=== PATIENT | male | born 1950 | race Caucasian/White ===

== ENCOUNTER 2024-05-31 06:47 | Day surgery (SDC) | payer OTHER ==
[2024-05-31] MEDS ORDERED: FentaNYL CITRATE PF 100 MCG/2 ML VIAL ONE (07:53)
[2024-05-31] MEDS ORDERED: MIDAZOLAM HCL 2 MG/2 ML VIAL ONE (07:54)
[2024-05-31] MEDS ORDERED: TRAZ-252 PO (08:34)
[2024-05-31] MEDS ORDERED: FAMO20 PO (08:34)
[2024-05-31] MEDS ORDERED: OMEP20 PO (08:34)
[2024-05-31] MEDS ORDERED: SERT-158 PO (08:34)
[2024-05-31] MEDS ORDERED: AMLO-258 PO (08:34)
[2024-05-31] MEDS ORDERED: ASPI-1450 PO (08:34)
[2024-05-31] MEDS ORDERED: LOSA-381 PO (08:34)
[2024-05-31] MEDS ORDERED: MONT-35 PO (08:34)
[2024-05-31] MEDS ORDERED: TAMS0.4C94 PO (08:34)
[2024-05-31] MEDS ORDERED: ATOR40TA28 PO (08:34)
[2024-05-31] MEDS ORDERED: BUDE10.27 IH (08:35)
[2024-05-31] MEDS ORDERED: TOPI25 PO (08:35)
[2024-05-31] MEDS: SODIUM CHLORIDE 0.9% 1,000 ML IV ONE (09:24)
[2024-05-31 09:25] VITALS: PULSE 90; RESP 20; O2SAT 100
[2024-05-31] MEDS ORDERED: MethylPREDNISolone SOD SUCC 125 MG/2 ML VIAL ONE (09:48)
[2024-05-31] MEDS: MethylPREDNISolone SOD SUCC 125 MG/2 ML VIAL IVP ONE (10:38)
== END 2024-05-31 13:47 | disposition home or self-care (01) ==
LOC: SURGERY 06:47
PROVIDERS: ATTEND Internal Medicine Critical Care Medicine
DX: R05.3 Chronic cough (principal); J38.4 Edema of larynx; B37.0 Candidal stomatitis; R04.2 Hemoptysis; R06.2 Wheezing; J98.09 Other diseases of bronchus, not elsewhere classified; J84.10 Pulmonary fibrosis, unspecified; J98.8 Other specified respiratory disorders; Z85.21 Personal history of malignant neoplasm of larynx; Z87.891 Personal history of nicotine dependence
CPT/HCPCS: 31623; 93005; 87206; 87101; 87220; 87070; 88108; 31624; 94640; 71045; 87015; J3010; J2250; J2919